=== PATIENT | female | born 1980 | race Caucasian/White ===

== ENCOUNTER → 2016-05-25 | Outpatient (CLI) | payer OTHER ==
[~2016-05-25] MED LIST: ASCA500 PO; B-CO1CAP17 PO; BCPILLS PO; BUPR-267 PO; CHOL1000 PO; ECHI400C11 PO; FAMO20TA11 PO; FEXO1TAB45 PO; FEXO1TAB46 PO; FLUT0.15 NAE; LEVO125T72 PO; MAGN400T6 PO; MISC4CAP PO; MULT-884 PO; OMEG10007 PO; OMEG5CAP PO; ONDA4TAB10 SL; PANT40TA PO; THYR1TAB PEG; THYR1TAB PO; VITA1TAB4 PO
[2016-05-25 20:07] LABS: THYROID STIMULATING HORMONE 0.814 uIu/ml (0.300-4.500)
== END | disposition home or self-care (01) ==
LOC: C.LAB 17:06
PROVIDERS: ATTEND Family Medicine
DX: E03.9 Hypothyroidism, unspecified (principal)

== ENCOUNTER → 2016-07-21 | Outpatient (CLI) | payer OTHER ==
[2016-07-21 13:27] LABS: THYROID STIMULATING HORMONE 0.125 uIu/ml (0.300-4.500)
== END | disposition home or self-care (01) ==
LOC: C.LAB1850 11:36
PROVIDERS: ATTEND Family Medicine
DX: E03.9 Hypothyroidism, unspecified (principal)

== ENCOUNTER 2016-08-03 04:07 | Emergency (ER) | payer OTHER ==
[~2016-08-03] VITALS: Ht 162.6 cm; Wt 83.2 kg
[~2016-08-03 04:07] MED LIST changes: -ASCA500 PO; -B-CO1CAP17 PO; -CHOL1000 PO; -ECHI400C11 PO; -FEXO1TAB45 PO; -MAGN400T6 PO; -OMEG10007 PO; -OMEG5CAP PO; -ONDA4TAB10 SL; -PANT40TA PO; -THYR1TAB PEG; -THYR1TAB PO; -VITA1TAB4 PO
[2016-08-03 04:11] VITALS: TEMP 36.8; Ht 162.6 cm; Wt 83.2 kg
[2016-08-03] MEDS ORDERED: ONDANSETRON INJ 2 MG/ML 2 ML VIAL IV STA (04:27)
[2016-08-03] MEDS ORDERED: PANTOprazole INJ 40 MG in SYRINGE 0 ML IV ONE (04:30)
[2016-08-03] MEDS ORDERED: GI COCKTAIL PO ONE (04:30)
[2016-08-03] MEDS ORDERED: SODIUM CHLORIDE 0.9% 1000ML 1,000 ML IV ONE (04:30)
[2016-08-03] MEDS ORDERED: ALUMINUM/MAGNESIUM SUSP 30 ML UDC ONE (04:41)
[2016-08-03] MEDS ORDERED: LIDOCAINE HCL 2% VISC SOLN 20 ML UDC ONE (04:41)
[2016-08-03 04:53] LABS: BASO % 0.5 %; BASO ABS # 0.04 K/uL (0-0.2); COMPLETE YES; EOS % 2.8 %; HEMATOCRIT 41.7 % (37-47); IG% 0.1 %; LYMPH ABS # 2.79 K/uL (1.2-3.4); MEAN CELL VOLUME 84.4 fL (80-100); MEAN CORPUSCULAR HEMOGLOBIN 28.9 pg (25-34); MEAN CORPUSCULAR HGB CONC 34.3 g/dl (32-36); MEAN PLATELET VOLUME 10.1 fL (7.4-10.4); MONO % 7.7 %; NEUT % 53.9 %; PLATELET COUNT 265 K/uL (130-400); RED BLOOD COUNT 4.94 M/uL (4.2-5.4); WHITE BLOOD COUNT 7.97 K/uL (4.8-10.8)
[2016-08-03] MEDS ORDERED: THYR1TAB PO (05:10)
[2016-08-03 05:11] LABS: BUN/CREATININE RATIO 10.9 (10-20); CALCIUM 8.9 mg/dl (8.5-10.1); CREATININE 0.92 mg/dl (0.60-1.20); POTASSIUM 3.9 mmol/L (3.5-5.1)
[2016-08-03] MEDS ORDERED: OMEG10007 PO (05:11)
[2016-08-03] MEDS ORDERED: B-CO1CAP17 PO (05:12)
[2016-08-03] MEDS ORDERED: MAGN400T6 PO (05:13)
[2016-08-03 05:14] LABS: ALB/GLOB RATIO 1.2 (0.9-2)
[2016-08-03 05:20] LABS: URINE APPEARANCE CLEAR (CLEAR); URINE BILIRUBIN NEG (NEG); URINE COLOR DK YELLOW; URINE EPITHELIAL CELL AUTO >30 /lpf (0-5); URINE NITRITE NEG (NEG); URINE SPECIFIC GRAVITY 1.021 (1.000-1.030); UROBILINOGEN NEG (NEG); ZZUR CULT IF INDIC CLEAN CATCH YES
[2016-08-03 05:26] LABS: MANUAL MICROSCOPIC REQUIRED? NO; REVIEW REQ? NO
[2016-08-03] MEDS ORDERED: ONDA4TAB10 SL (05:50)
[2016-08-03] MEDS ORDERED: PANT40TA PO (05:50)
[2016-08-03] MEDS ORDERED: MAGNESIUM CITRATE 296 ML/BTL PO ONE (06:00)
[2016-08-03] MEDS ORDERED: ONDANSETRON HOME PACK 4MG OD TAB PO ONE (06:00)
[2016-08-03 06:09] VITALS: BP 128/69; PULSE 72; O2SAT 99
--- NOTE | 2016-08-03 07:12 | EMERGENCY ROOM VISIT NOTE ---
History First contact with patient: 04:14 Chief Complaint: ABDOMINAL PAIN Stated Complaint: HEART BURN,NAUSEA,ABDOMINAL PAIN Nursing Triage Summary: Patient reports nausea since Sunday and diffuse abdominal pain and heart burn since yesterday. pt had taken zantac at home with no relief. denies vomiting and diarrhea. History of Present Illness The patient is a 36 year old female who presents to the Emergency Room with complaints of nausea symptoms for the past 4 days. The patient began experiencing generalized abdominal pain and GERD symptoms for the past one day. The patient took Zantac at home without significant relief of her symptoms. The patient has had symptoms of chronic constipation in the past, and did use Senokot over the weekend with only minimal improvement of symptoms. The patient has not had fever or chills at home. No chest pain, chest tightness, or shortness of breath. She denies chance of as she is on her menses. The patient rates her overall discomfort a 4/10. Review of Systems More than 10 systems were reviewed and otherwise negative with the exception of history of present illness. Past Medical/Surgical History No chronic medical disease Family History No pertinent family history Social History Smoking Status: Never Smoker Occupation Status: employed Current/Historical Medications Scheduled Fish Oil (Caro-3), 1 CAP PO TID Magnesium Oxide (Mag-Ox), 400 MG PO DAILY Ondasetron Odt (Zofran Odt), 4 MG SL Q6H Pantoprazole (Protonix), 40 MG PO DAILY Thyroid (Nature-Throid), 113.75 MG PO DAILY Vitamin B Cmplx/Vitc/Folic Ac (Nephrocaps), 1 CAP PO DAILY Allergies Coded Allergies: NO KNOWN DRUG ALLERGIES (Verified Allergy, Unknown, ., 09/15/15) Uncoded Allergies: POLLENS (Allergy, Intermediate, RHINITIS, 08/05/14) Physical Exam Vital Signs Date Time Temp Pulse Resp B/P Pulse Ox O2 Delivery O2 Flow Rate FiO2 08/03/16 06:09 72 20 128/69 99 08/03/16 04:11 36.8 92 20 123/83 95 Room Air Pain Rating (0-10): 3.0 Physical Exam VITALS: Vitals are noted on the nurse's note and reviewed by myself. Vital signs stable. GENERAL: Well-developed, well-nourished, white female, who is in no acute distress and resting comfortably. Patient is cooperative with the examination. HEAD: Normocephalic atraumatic. EARS: External ear normal. External auditory canals clear, tympanic membranes pearly [place]ingo without erythema or effusion bilaterally. EYES: Pupils equal round and reactive to light and accommodation. Conjunctivae without injection, sclerae without icterus. Extraocular movements intact. NOSE: Patent, turbinates without inflammation or discharge. MOUTH: Mucous membranes moist. Tonsils are not enlarged. Pharynx without erythema, blood, or exudate. Uvula midline. Airway patent. NECK: Supple without nuchal rigidity. No lymphadenopathy. No thyromegaly. Cervical spine is nontender. HEART: Regular rate and rhythm without murmurs gallops or rubs. LUNGS: Clear to auscultation bilaterally without wheezes, rales or rhonchi. No retractions or accessory muscle use. ABDOMEN: Positive normal bowel sounds x 4. Soft with generalized tenderness. No distinct point tenderness. No rebound or guarding. No CVA tenderness. MUSCULOSKELETAL: No muscle atrophy, erythema, or edema noted. Full range of motion without joint tenderness in all extremities. Medical Decision & Procedures Laboratory Results 08/03/16 04:35 Red Blood Count 4.94, Mean Corpuscular Volume 84.4, Mean Corpuscular Hemoglobin 28.9, Mean Corpuscular Hemoglobin Concent 34.3, Mean Platelet Volume 10.1, Neutrophils (%) (Auto) 53.9, Lymphocytes (%) (Auto) 35.0, Monocytes (%) (Auto) 7.7, Eosinophils (%) (Auto) 2.8, Basophils (%) (Auto) 0.5, Neutrophils # (Auto) 4.30, Lymphocytes # (Auto) 2.79, Monocytes # (Auto) 0.61, Eosinophils # (Auto) 0.22, Basophils # (Auto) 0.04 08/03/16 04:35 Test 08/03/16 04:35 08/03/16 04:40 08/03/16 04:43 White Blood Count 7.97 K/uL (4.8-10.8) Red Blood Count 4.94 M/uL (4.2-5.4) Hemoglobin 14.3 g/dL (12.0-16.0) Hematocrit 41.7 % (37-47) Mean Corpuscular Volume 84.4 fL (80-100) Mean Corpuscular Hemoglobin 28.9 pg (25-34) Mean Corpuscular Hemoglobin Concent 34.3 g/dl (32-36) Platelet Count 265 K/uL (130-400) Mean Platelet Volume 10.1 fL (7.4-10.4) Neutrophils (%) (Auto) 53.9 % Lymphocytes (%) (Auto) 35.0 % Monocytes (%) (Auto) 7.7 % Eosinophils (%) (Auto) 2.8 % Basophils (%) (Auto) 0.5 % Neutrophils # (Auto) 4.30 K/uL (1.4-6.5) Lymphocytes # (Auto) 2.79 K/uL (1.2-3.4) Monocytes # (Auto) 0.61 K/uL (0.11-0.59) Eosinophils # (Auto) 0.22 K/uL (0-0.5) Basophils # (Auto) 0.04 K/uL (0-0.2) RDW Standard Deviation 40.2 fL (36.4-46.3) RDW Coefficient of Variation 13.2 % (11.5-14.5) Immature Granulocyte % (Auto) 0.1 % Immature Granulocyte # (Auto) 0.01 K/uL (0.00-0.02) Anion Gap 6.0 mmol/L (3-11) Est Creatinine Clear Calc Drug Dose 89.9 ml/min Estimated GFR () 94.2 Estimated GFR (Non- 81.2 BUN/Creatinine Ratio 10.9 (10-20) Calcium Level 8.9 mg/dl (8.5-10.1) Total Bilirubin 0.4 mg/dl (0.2-1) Aspartate Amino Transf (AST/SGOT) 10 U/L (15-37) Alanine Aminotransferase (ALT/SGPT) 23 U/L (12-78) Alkaline Phosphatase 58 U/L (45-117) Total Protein 7.1 gm/dl (6.4-8.2) Albumin 3.8 gm/dl (3.4-5.0) Globulin 3.3 gm/dl (2.5-4.0) Albumin/Globulin Ratio 1.2 (0.9-2) Lipase 116 U/L (73-393) Urine Color DK YELLOW Urine Appearance CLEAR (CLEAR) Urine pH 5.0 (4.5-7.5) Urine Specific Gaines 1.021 (1.000-1.030) Urine Protein NEG (NEG) Urine Glucose (UA) NEG (NEG) Urine Ketones NEG (NEG) Urine Occult Blood 1+ (NEG) Urine Nitrite NEG (NEG) Urine Bilirubin NEG (NEG) Urine Urobilinogen NEG (NEG) Urine Leukocyte Esterase NEG (NEG) Urine WBC (Auto) 1-5 /hpf (0-5) Urine RBC (Auto) 0-4 /hpf (0-4) Urine Hyaline Casts (Auto) 1-5 /lpf (0-5) Urine Epithelial Cells (Auto) >30 /lpf (0-5) Urine Bacteria (Auto) 1+ (NEG) Urine Test NEG (NEG) Bedside Troponin I 0.000 ng/ml (0-0.045) Medications Administered Medications (Trade) Dose Ordered Sig/Jesu Route Start Time Stop Time Status Last Admin Dose Admin Sodium Chloride (Nss 1000ml) 1,000 ml @ 999 mls/hr Q1H1M ONCE IV 08/03/16 04:30 08/03/16 05:30 DC 08/03/16 04:47 999 MLS/HR Ondansetron HCl 4 mg 4 mg NOW STAT IV 08/03/16 04:27 08/03/16 04:30 DC 08/03/16 04:48 4 MG Pantoprazole Sodium/Syringe (Protonix Inj/ Syringe) 10 ml @ 5 mls/min NOW ONCE IV 08/03/16 04:30 08/03/16 04:31 DC 08/03/16 05:04 5 MLS/MIN Al Hydroxide/Mg Hydroxide (Maalox Susp) 30 ml STK-MED ONCE .ROUTE 08/03/16 04:41 08/03/16 04:44 DC 08/03/16 04:48 30 ML Lidocaine HCl (Viscous Lidocaine 2% Soln) 20 ml STK-MED ONCE .ROUTE 08/03/16 04:41 08/03/16 04:44 DC 08/03/16 04:48 20 ML Ondansetron HCl (ZOFRAN ODT 4MG Home Pack) 1 homepack UD ONCE PO 08/03/16 06:00 08/03/16 06:01 DC 08/03/16 06:03 1 HOMEPACK Magnesium Citrate (Citrate Of Magnesia Soln) 296 ml NOW ONCE PO 08/03/16 06:00 08/03/16 06:01 DC 08/03/16 06:03 296 ML ED Course Physical exam and history were performed. Nursing notes and EMR were reviewed. Patient appears to have nausea with generalized abdominal pain. She does not appear toxic on examination. IV access was established and labs were obtained. The patient was given a GI cocktail, IV Zofran, and IV Protonix. She was hydrated with normal saline. Plain films were performed. The patient's blood work is as above and was reviewed. She does not have a significantly elevated white blood cell count, anemia, bandemia, or gross electrolyte imbalance. Lipase and transaminases are nondiagnostic. Urine is without obvious infection. Troponin 1 is negative. EKG was normal sinus rhythm without acute ST elevation. X-ray shows increased stool but no obvious obstructive process or free air with official radiology report pending at the time of this dictation. I discussed the case by attending physician, Dr. Arce , who did review the case. I had a lengthy discussion with the patient regarding her symptoms. I offered a CT scan of the abdomen and pelvis to better evaluate her symptoms. In a matter of care decision-making, we elected to defer CT imaging at this time. The patient is comfortable with trying a regimen of Zofran, Protonix, and magnesium citrate at home. Her abdominal pain certainly could be related to constipation, and this may significantly improve her symptoms. The patient has had GERD symptoms in the past, and her most recent scope was about one year ago , and was normal. 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 She understands the importance of returning to the ER if any new, worsening, or concerning symptoms. The patient was pleased with this plan and rated her discomfort a 0/10 at the time of departure. The chart was completed utilizing [employer] Speech Voice Recognition Software. Grammatical errors, random word insertions, pronoun errors, and incomplete sentences are an occasional consequence of this system due to software limitations, ambient noise, and hardware issues. Any formal questions or concerns about the content, text, or information contained within the body of this dictation should be directly addressed to the provider for clarification. . Medical Decision Differential diagnosis: Etiologies such as appendicitis, diverticulitis, PUD, biliary pathology, UTI, pancreatitis, obstruction, mesenteric ischemia, aortic pathology, infections, inflammatory bowel disease, renal colic, as well as others were entertained. Impression Primary Impression: Abdominal pain Departure Information Dispostion Home / Self-Care Condition GOOD Prescriptions Pantoprazole (Protonix) 40 Mg Tab 40 MG PO DAILY for 14 Days, #14 TAB Prov: Art Rowe PA-C 08/03/16 Ondasetron Odt (ZOFRAN ODT) 4 Mg Tab 4 MG SL Q6H for Nausea, #20 TAB Prov: Art Rowe PA-C 08/03/16 Forms Call Back Authorization, HOME CARE DOCUMENTATION FORM, Work Instructions, Additional Instructions: Patient was seen and evaluated in the emergency department for medica care. Return to work on 08/05/2016. Please excuse. IMPORTANT VISIT INFORMATION Patient Instructions My [facility] Additional Instructions You were seen and evaluated today on an emergency basis only. This is not a substitute for, or an effort to provide, complete comprehensive medical care. It is not possible to recognize and treat all injuries or illnesses in a single emergency department visit. For this reason it is recommended that you followup with your primary care physician in the next 1-2 days for recheck of your condition. Zofran 1 tablet every 6 hrs as needed for nausea. Take Protonix 40 mg daily for the next 2 weeks. You may use magnesium citrate at home. Drink one half the bottle, wait one to 2 hours, then drink the other half of the bottle. It is recommended you drink plenty of fluids with this, as it should elicit a bowel movement over the next few hours. You are welcome to return to the emergency department anytime with new, worsening, or concerning symptoms. Work Instructions Additional Work Instructions: Patient was seen and evaluated in the emergency department for medical care. Return to work on 08/05/2016. Please excuse.
--- NOTE | 2016-08-03 07:25 | DIAGNOSTIC IMAGING REPORT ---
CHEST AND ABDOMEN 2 VIEWS HISTORY: Generalized abdominal pain. COMPARISON: Chest and abdominal series 08/04/2015. FINDINGS: The lungs are clear. The cardiomediastinal silhouette is within normal limits. There is no pneumoperitoneum or pneumatosis. The bowel gas pattern is unremarkable. No evidence for bowel obstruction. No pathologic calcifications. There is an intrauterine device within the midline of the pelvis. Moderate stool within the colon. IMPRESSION: No acute cardiopulmonary process. No evidence for bowel obstruction. Electronically signed by: Jason Kraft M.D. 08/03/2016 7:24 AM Dictated Date/Time: 08/03/2016 7:22 AM
== END 2016-08-03 06:10 | disposition home or self-care (01) ==
LOC: C.EDB 04:08 → C.EDA 06:10
DX: R10.9 Unspecified abdominal pain (principal)

== ENCOUNTER → 2016-08-04 | Outpatient (CLI) | payer OTHER ==
[~2016-08-04] MED LIST changes: +ASCA500 PO; +B-CO1CAP17 PO; -BCPILLS PO; -BUPR-267 PO; +CHOL1000 PO; +ECHI400C11 PO; -FAMO20TA11 PO; +FEXO1TAB45 PO; -FEXO1TAB46 PO; -LEVO125T72 PO; +MAGN400T6 PO; -MULT-884 PO; +OMEG10007 PO; +OMEG5CAP PO; +ONDA4TAB10 SL; +PANT40TA PO; +THYR1TAB PEG; +THYR1TAB PO; +VITA1TAB4 PO
== END | disposition home or self-care (01) ==
LOC: C.PAPS 11:43
PROVIDERS: ATTEND Obstetrics & Gynecology
DX: Z12.4 Encounter for screening for malignant neoplasm of cervix (principal); Z87.42 Personal history of other diseases of the female genital tract

== ENCOUNTER → 2016-08-22 | Outpatient (CLI) | payer OTHER ==
[~2016-08-22] MED LIST changes: -PANT40TA PO
== END | disposition home or self-care (01) ==
LOC: C.PATHSPEC 16:45
PROVIDERS: ATTEND Dermatology
DX: B08.1 Molluscum contagiosum (principal); L30.8 Other specified dermatitis

== ENCOUNTER → 2016-08-28 | Outpatient (CLI) | payer OTHER | END | disposition home or self-care (01) | LOC: C.LAB1850 14:59 | PROVIDERS: ATTEND Nurse Practitioner Family | DX: Z11.3 Encounter for screening for infections with a predominantly sexual mode of transmission (principal) ==

== ENCOUNTER → 2016-08-28 | Outpatient (CLI) | payer OTHER | END | disposition home or self-care (01) | LOC: C.PATHSPEC 14:09 | PROVIDERS: ATTEND Dermatology | DX: B08.1 Molluscum contagiosum (principal) ==

== ENCOUNTER → 2016-09-06 | Outpatient (CLI) | payer OTHER ==
[2016-09-09 02:32] LABS: CHLAMYDIA TRACH RNA*** NOT DETECTED (NOT DETECTED); GC (NEIS GONORRHOEAE)RNA** NOT DETECTED (NOT DETECTED)
== END | disposition home or self-care (01) ==
LOC: C.LABSPEC 11:35
PROVIDERS: ATTEND Obstetrics & Gynecology
DX: N90.89 Other specified noninflammatory disorders of vulva and perineum (principal)

== ENCOUNTER → 2016-09-29 | Outpatient (CLI) | payer OTHER ==
[2016-09-29 10:00] LABS: ESTIMATED AVERAGE GLUCOSE 105 mg/dl; HA1C FLAG Normal (Normal)
[2016-09-29 10:01] LABS: CHOLESTEROL/HDL RATIO 2.7
[2016-09-29 10:09] LABS: CALCULATED INSULIN SENSITIVITY 0.357; GLUCOSE LOG 1.9085; INSULIN FASTING 7.8 mU/L (3-25); INSULIN LOG 0.8921
== END | disposition home or self-care (01) ==
LOC: C.LAB1850 08:17
PROVIDERS: ATTEND Internal Medicine Endocrinology, Diabetes & Metabolism
DX: E03.9 Hypothyroidism, unspecified (principal); E16.2 Hypoglycemia, unspecified; E66.9 Obesity, unspecified; Z83.3 Family history of diabetes mellitus; T14.8 Other injury of unspecified body region; X58.XXXA Exposure to other specified factors, initial encounter

== ENCOUNTER → 2016-10-23 | Outpatient (CLI) | payer OTHER | END | disposition home or self-care (01) | LOC: C.LAB1850 07:38 | PROVIDERS: ATTEND Internal Medicine Endocrinology, Diabetes & Metabolism | DX: E03.9 Hypothyroidism, unspecified (principal) ==

== ENCOUNTER → 2016-10-24 | Outpatient (CLI) | payer OTHER | LOC: C.PATHSPEC 16:34 | PROVIDERS: ATTEND Dermatology | DX: L98.9 Disorder of the skin and subcutaneous tissue, unspecified (principal) ==

== ENCOUNTER 2016-11-27 08:03 | Emergency (ER) | payer OTHER ==
[~2016-11-27] VITALS: Ht 162.6 cm; Wt 84.1 kg
[~2016-11-27 08:03] MED LIST changes: -ASCA500 PO; -CHOL1000 PO; -ECHI400C11 PO; -FEXO1TAB45 PO; -FLUT0.15 NAE; -MISC4CAP PO; -OMEG5CAP PO; -THYR1TAB PEG; -VITA1TAB4 PO
[2016-11-27 08:05] VITALS: TEMP 36.7; Ht 162.6 cm; Wt 84.1 kg
[2016-11-27 08:47] LABS: BASO % 0.4 %; BASO ABS # 0.03 K/uL (0-0.2); COMPLETE YES; EOS % 1.9 %; HEMATOCRIT 45.1 % (37-47); IG% 0.1 %; LYMPH ABS # 2.56 K/uL (1.2-3.4); MEAN CELL VOLUME 87.7 fL (80-100); MEAN CORPUSCULAR HEMOGLOBIN 29.2 pg (25-34); MEAN CORPUSCULAR HGB CONC 33.3 g/dl (32-36); MEAN PLATELET VOLUME 10.3 fL (7.4-10.4); MONO % 7.7 %; NEUT % 55.9 %; PLATELET COUNT 241 K/uL (130-400); RED BLOOD COUNT 5.14 M/uL (4.2-5.4); WHITE BLOOD COUNT 7.54 K/uL (4.8-10.8)
--- NOTE | 2016-11-27 08:47 | DIAGNOSTIC IMAGING REPORT ---
CHEST ONE VIEW PORTABLE CLINICAL HISTORY: Atypical chest pain COMPARISON STUDY: 08/03/2016 FINDINGS: The cardiac and mediastinal contours are normal. There is no evidence of focal pulmonary consolidation. There is no evidence of failure. No pleural effusions are visualized.[ IMPRESSION: No active disease in the chest. Electronically signed by: Leeroy Cooper M.D. 11/27/2016 8:46 AM Dictated Date/Time: 11/27/2016 8:45 AM
[2016-11-27 08:49] LABS: POINT OF CARE TROPONIN I < 0.030 ng/ml (0-0.045)
[2016-11-27 08:52] LABS: ALT/SGPT 21 U/L (12-78); BLOOD UREA NITROGEN 16 mg/dl (7-18); BUN/CREATININE RATIO 17.9 (10-20); CALCIUM 9.2 mg/dl (8.5-10.1); CARBON DIOXIDE 30 mmol/L (21-32); CHLORIDE 104 mmol/L (98-107); CREATININE 0.91 mg/dl (0.60-1.20); GLUCOSE 70 mg/dl (70-99); MAGNESIUM 2.1 mg/dl (1.8-2.4); SODIUM 139 mmol/L (136-145)
[2016-11-27] MEDS ORDERED: VITA1TAB4 PO (08:59)
[2016-11-27] MEDS ORDERED: ECHI400C11 PO (08:59)
[2016-11-27] MEDS ORDERED: FLUT0.15 NAE (08:59)
[2016-11-27] MEDS ORDERED: FEXO1TAB45 PO (08:59)
[2016-11-27] MEDS ORDERED: MISC4CAP PO (08:59)
[2016-11-27] MEDS ORDERED: THYR1TAB PEG (08:59)
[2016-11-27] MEDS ORDERED: ASCA500 PO (08:59)
[2016-11-27] MEDS ORDERED: CHOL1000 PO (08:59)
--- NOTE | 2016-11-27 08:59 | EMERGENCY ROOM VISIT NOTE ---
History Report prepared by Adria: Babita Heller Under the Supervision of: Dr. Mercedes Munoz M.D. First contact with patient: 08:10 Chief Complaint: CHEST PAIN Stated Complaint: CHEST PAIN Nursing Triage Summary: pt c/o chest tightness started at 0730 this am does not radiate, no sob History of Present Illness The patient is a 36 year old female who presents to the Emergency Room with complaints of constant left-sided chest pain that started 45 minutes ago, around 0730. She describes the pain as tightness. The pain does not radiate. She denies shortness of breath. The patient states that she took a Pepcid before coming into work today and she was not experiencing any chest pain at that time. The patient was recently switched from Nature-Throid for hypothyroidism to WP thyroid because the Nature-Throid was on backorder. The patient states that the pharmacy told her the WP thyroid was the same as her normal medication and the only exception was that it did not contain calcium or magnesium. She states that she started the WP thyroid 1-2 weeks ago and has been experiencing nausea intermittently after taking it. She also states that she has been experiencing difficulty regulating her TSH. The patient states that she had a busy weekend and consumed some alcohol 3 days ago. The patient adds that she has a history of chronic constipation and her last bowel movement was 2 days ago. She denies any chance of and has an IUD. Her last normal menstrual period was last week and she took some ibuprofen for the associated symptoms. She denies taking ibuprofen or Aleve on a regular basis and states that she tries to avoid taking them secondary to her history of gastritis. The patient does not smoke. She denies any recent trips or surgeries. The patient states that she has a family history of heart disease. Source of History: patient Onset: 45 minutes ago, around 0730 Position: chest (left) Quality: other (tightness) Timing: constant Associated Symptoms: + nausea, No SOB Review of Systems See HPI for pertinent positives & negatives. A total of 10 systems reviewed and were otherwise negative. Past Medical & Surgical Medical Problems: (1) Constipation (2) Hypothyroidism (3) Seasonal allergies Family History Diabetes mellitus Heart disease Kidney disease Kidney stones Lung disease Social History Smoking Status: Never Smoker Alcohol Use: occasionally Marital Status: single Housing Status: lives alone Occupation Status: employed Current/Historical Medications Scheduled Ascorbic Acid (Vitamin C), 1,000 MG PO BID Cholecalciferol (Vitamin D3), 500 UNITS PO DAILY Echinacea (Echinacea), 1 CAP PO DAILY Fluticasone Propionate (Nasal) (Flonase Allergy Relief), 1 SPRAY MIYA DAILY [place]-3 Fatty Acids (Fish Oil 1200 mg), 1,200 MG PO DAILY Probiotic Product (Align), 4 MG PO DAILY Thyroid (Wp Thyroid), 81.25 MG PEG DAILY Vitamin E (Vitamin E), 1 TAB PO DAILY Scheduled PRN Fexofenadine Hcl (Angeles), 1 TAB PO DAILY PRN for ALLERGIES Allergies Coded Allergies: NO KNOWN DRUG ALLERGIES (Verified Allergy, Unknown, ., 09/15/15) Uncoded Allergies: POLLENS (Allergy, Intermediate, RHINITIS, 08/05/14) Physical Exam Vital Signs Date Time Temp Pulse Resp B/P (MAP) Pulse Ox O2 Delivery O2 Flow Rate FiO2 11/27/16 10:14 75 16 122/81 98 11/27/16 09:50 75 16 122/81 98 Room Air 11/27/16 08:31 77 11/27/16 08:05 36.7 73 18 140/90 100 Room Air Physical Exam Vital signs reviewed. General: Well-appearing female, in no significant distress. HEENT: No scleral icterus, PERRLA, neck supple. Atraumatic. Cardiovascular: Regular rate and rhythm, no extra sounds. Pulmonary: Clear to auscultation bilaterally, normal work of breathing. Abdomen: Soft, nontender, nondistended, positive bowel sounds. Musculoskeletal: Atraumatic, no peripheral edema. Neurologic: Patient awake alert and oriented x 3 Skin: Warm, dry, no rash Medical Decision & Procedures ER Provider Diagnostic Interpretation: Radiology results as stated below per my review and radiologist interpretation: CHEST ONE VIEW PORTABLE FINDINGS: The cardiac and mediastinal contours are normal. There is no evidence of focal pulmonary consolidation. There is no evidence of failure. No pleural effusions are visualized.[ IMPRESSION: No active disease in the chest. Electronically signed by: Leeroy Cooper M.D. 11/27/2016 8:46 AM Dictated Date/Time: 11/27/2016 8:45 AM Laboratory Results 11/27/16 08:15 Red Blood Count 5.14, Mean Corpuscular Volume 87.7, Mean Corpuscular Hemoglobin 29.2, Mean Corpuscular Hemoglobin Concent 33.3, Mean Platelet Volume 10.3, Neutrophils (%) (Auto) 55.9, Lymphocytes (%) (Auto) 34.0, Monocytes (%) (Auto) 7.7, Eosinophils (%) (Auto) 1.9, Basophils (%) (Auto) 0.4, Neutrophils # (Auto) 4.22, Lymphocytes # (Auto) 2.56, Monocytes # (Auto) 0.58, Eosinophils # (Auto) 0.14, Basophils # (Auto) 0.03 11/27/16 08:15 Test 11/27/16 08:15 11/27/16 08:29 White Blood Count 7.54 K/uL (4.8-10.8) Red Blood Count 5.14 M/uL (4.2-5.4) Hemoglobin 15.0 g/dL (12.0-16.0) Hematocrit 45.1 % (37-47) Mean Corpuscular Volume 87.7 fL (80-100) Mean Corpuscular Hemoglobin 29.2 pg (25-34) Mean Corpuscular Hemoglobin Concent 33.3 g/dl (32-36) Platelet Count 241 K/uL (130-400) Mean Platelet Volume 10.3 fL (7.4-10.4) Neutrophils (%) (Auto) 55.9 % Lymphocytes (%) (Auto) 34.0 % Monocytes (%) (Auto) 7.7 % Eosinophils (%) (Auto) 1.9 % Basophils (%) (Auto) 0.4 % Neutrophils # (Auto) 4.22 K/uL (1.4-6.5) Lymphocytes # (Auto) 2.56 K/uL (1.2-3.4) Monocytes # (Auto) 0.58 K/uL (0.11-0.59) Eosinophils # (Auto) 0.14 K/uL (0-0.5) Basophils # (Auto) 0.03 K/uL (0-0.2) RDW Standard Deviation 44.2 fL (36.4-46.3) RDW Coefficient of Variation 13.6 % (11.5-14.5) Immature Granulocyte % (Auto) 0.1 % Immature Granulocyte # (Auto) 0.01 K/uL (0.00-0.02) Anion Gap 5.0 mmol/L (3-11) Est Creatinine Clear Calc Drug Dose 91.4 ml/min Estimated GFR () 95.4 Estimated GFR (Non- 82.3 BUN/Creatinine Ratio 17.9 (10-20) Calcium Level 9.2 mg/dl (8.5-10.1) Magnesium Level 2.1 mg/dl (1.8-2.4) Total Bilirubin 0.7 mg/dl (0.2-1) Direct Bilirubin 0.1 mg/dl (0-0.2) Aspartate Amino Transf (AST/SGOT) 11 U/L (15-37) Alanine Aminotransferase (ALT/SGPT) 21 U/L (12-78) Alkaline Phosphatase 69 U/L (45-117) Total Creatine Kinase 61 U/L (26-192) Creatine Kinase MB < 0.5 ng/ml (0.5-3.6) Creatine Kinase MB Ratio (0-3.0) Total Protein 7.6 gm/dl (6.4-8.2) Albumin 4.1 gm/dl (3.4-5.0) Thyroid Stimulating Hormone (TSH) 2.120 uIu/ml (0.300-4.500) Bedside D-Dimer 112 ng/mlFEU (0-450) Bedside Troponin I < 0.030 ng/ml (0-0.045) Laboratory results per my review. ECG Indication: chest pain Rate (beats per minute): 63 Rhythm: normal sinus Findings: no acute ischemic change, no ectopy ED Course 0820: Past medical records reviewed. The patient was evaluated in room A11. A complete history and physical examination was performed. 0945: Upon reevaluation, the patient appeared to have improvement of her symptoms. I discussed findings with her. She verbalized agreement of the treatment plan. She was discharged home. Medical Decision Differential diagnoses includes acute coronary syndrome, pulmonary embolus, aortic dissection, musculoskeletal pain, pneumonia, pleural effusion, pneumothorax, gastritis, peptic ulcer disease. Medication Reconciliation: I attest that I have personally reviewed the patient' s current medication list. Blood Pressure Screening: Patient was found to have a slightly elevated blood pressure due to circumstances. I do not believe that the patient requires hypertension monitoring. This patient was evaluated and appeared to be in no significant distress. IV access was obtained and laboratory work was drawn. Patient was placed on the electronic device monitor and found to be in a normal sinus rhythm. Laboratory work reveals a negative d-dimer and troponin. Chest x-ray is clear. EKG reveals no evidence of acute ischemia. The patient was informed of the findings. I feel this is likely gastritis. Patient was asked to use Pepcid 20 mg twice daily. Patient will follow-up with her primary care physician and gastroenterology as scheduled this week. She will return to the ER for worsening of symptoms or any medical concerns. Impression Primary Impression: Non-cardiac chest pain Additional Impression: Hypokalemia Scribe Attestation The scribe's documentation has been prepared under my direction and personally reviewed by me in its entirety. I confirm that the note above accurately reflects all work, treatment, procedures, and medical decision making performed by me. Departure Information Dispostion Home / Self-Care Referrals Rebecca Carlos D.O. (PCP) Forms HOME CARE DOCUMENTATION FORM, IMPORTANT VISIT INFORMATION Patient Instructions My [facility] Additional Instructions Diagnosis: Noncardiac chest pain, hypokalemia Pepcid 20 mg twice daily for the next 7 days. Then as needed. Increase the potassium in your diet, bananas and potatoes are a good source. Tylenol 650 mg every 6 hours as needed for pain. Follow-up with your physician for reevaluation this week if symptoms persist. Return to the ER for worsening of symptoms or any medical concerns. Problem Qualifiers
[2016-11-27] MEDS ORDERED: OMEG5CAP PO (09:00)
[2016-11-27 09:03] LABS: ALKALINE PHOSPHATASE 69 U/L (45-117); AST/SGOT 11 U/L (15-37)
[2016-11-27 10:14] VITALS: BP 122/81; PULSE 75; O2SAT 98
== END 2016-11-27 10:15 | disposition home or self-care (01) ==
LOC: C.EDB 08:04 → C.EDA 10:15
DX: R07.89 Other chest pain (principal); E87.6 Hypokalemia; E03.9 Hypothyroidism, unspecified; Z83.3 Family history of diabetes mellitus; Z82.49 Family history of ischemic heart disease and other diseases of the circulatory system

== ENCOUNTER → 2016-12-05 | Outpatient (CLI) | payer OTHER ==
[~2016-12-05] MED LIST changes: +ASCA500 PO; -B-CO1CAP17 PO; +CHOL1000 PO; +ECHI400C11 PO; +FEXO1TAB45 PO; +FLUT0.15 NAE; -MAGN400T6 PO; +MISC4CAP PO; -OMEG10007 PO; +OMEG5CAP PO; -ONDA4TAB10 SL; +THYR1TAB PEG; -THYR1TAB PO; +VITA1TAB4 PO
== END | disposition home or self-care (01) ==
LOC: C.LAB 11:35
PROVIDERS: ATTEND Family Medicine
DX: E87.6 Hypokalemia (principal)

== ENCOUNTER → 2017-02-02 | Outpatient (CLI) | payer OTHER ==
[2017-02-02 13:39] LABS: POTASSIUM 3.7 mmol/L (3.5-5.1)
[2017-02-02 13:40] LABS: MAGNESIUM 2.1 mg/dl (1.8-2.4)
[2017-02-05 14:52] LABS: MICROSOMAL AB 6 IU/ML (<9)
== END | disposition home or self-care (01) ==
LOC: C.LAB1850 11:19
PROVIDERS: ATTEND Family Medicine
DX: E87.6 Hypokalemia (principal); E03.9 Hypothyroidism, unspecified; R40.0 Somnolence; E66.9 Obesity, unspecified

== ENCOUNTER → 2017-04-13 | Outpatient (CLI) | payer OTHER | END | disposition home or self-care (01) | LOC: C.LAB1850 09:57 | PROVIDERS: ATTEND Internal Medicine Endocrinology, Diabetes & Metabolism | DX: E03.9 Hypothyroidism, unspecified (principal) ==

== ENCOUNTER → 2017-08-09 | Outpatient (CLI) | payer OTHER | END | disposition home or self-care (01) | LOC: C.LABSPEC 12:33 | PROVIDERS: ATTEND Dermatology | DX: L70.0 Acne vulgaris (principal) ==

== ENCOUNTER → 2017-08-09 | Outpatient (CLI) | payer OTHER | END | disposition home or self-care (01) | LOC: C.PAPS 09:00 | PROVIDERS: ATTEND Obstetrics & Gynecology | DX: Z12.4 Encounter for screening for malignant neoplasm of cervix (principal) ==